=== PATIENT | male | born 1950 | race Caucasian/White ===

== ENCOUNTER 2020-02-02 23:02 | Inpatient (IN) | payer OTHER, MEDICARE, BC ==
[~2020-02-02] VITALS: Ht 180.3 cm; Wt 81.6 kg
--- NOTE | 2020-02-02 23:03 | NUR ---
BY EMS TO ROOM. MOVED SELF TO STRETCHER WITHOUT PROBLEM. STRONG SMELL OF ETOH.
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
[2020-02-02 23:42] LABS: HEMATOCRIT 29.5 % (39.0-50.0); HEMOGLOBIN 9.9 g/dl (14.0-18.0); IMMATURE GRANULOCYTES 0.2 % (0.0-5.0); MEAN CELL VOLUME 100.3 fL CALC (80.0-100.0); MEAN CORPUSCULAR HGB 33.7 pG CALC (26.0-32.0); MEAN CORPUSCULAR HGB CONC 33.6 g/dL CAL (32.0-36.0); NEUT# 2.86 thou/uL (1.82-7.42); RED BLOOD COUNT 2.94 mill/uL (4.70-6.10); RED CELL DISTRI WIDTH 18.2 % (11.5-15.5)
[2020-02-02 23:48] LABS: ALBUMIN 3.9 g/dL (3.2-5.0); ALKALINE PHOSPHATASE 179 u/l (38-126); ANION GAP 17 (6-22 (CALC)); BILIRUBIN, TOTAL 0.7 mg/dL (0.0-1.4); BUN 13 mg/dL (8-23); BUN/CREATININE RATIO 10 (12-20 (CALC)); CARBON DIOXIDE 20 mmol/l (22-30); CHLORIDE 101 mmol/l (95-108); CREATININE 1.3 mg/dL (0.7-1.3); ETHYL ALCOHOL 195 mg/dl (0-30); GFR 54 ML/MIN (>=60 (CALC)); GFR FOR AFR.AMER. > 60 ML/MIN (>=60 (CALC)); POTASSIUM 3.5 mmol/l (3.5-5.1); SGOT/AST 270 u/l (19-48); SODIUM 135 mmol/l (137-146)
--- NOTE | 2020-02-03 00:31 | NUR ---
PT SLEEPING. VSS. NAD.
--- NOTE | 2020-02-03 02:59 | NUR ---
PT SLEEPING. AROUSES EASILY. VOIDED 600 CC IN URINAL. URINE SAMPLE SENT.
--- NOTE | 2020-02-03 03:46 | NUR ---
PT RESTING. NAD. VSS.
--- NOTE | 2020-02-03 04:49 | NUR ---
PT RESTING. VSS. NAD.
--- NOTE | 2020-02-03 05:45 | NUR ---
DR TO BEDSIDE TO TALK WITH PT. PT STILL THINKS HE IS IN A [facility].
[2020-02-03 05:50] LABS: URINE BILIRUBIN - DIPSTICK NEGATIVE (NEGATIVE); URINE BLOOD DIPSTICK NEGATIVE (NEGATIVE); URINE COLOR YELLOW; URINE GLUCOSE - DIPSTICK NEGATIVE (NEGATIVE); URINE KETONE NEGATIVE (NEGATIVE); URINE LEUK ESTERASE NEGATIVE (NEGATIVE); URINE NITRITE - DIPSTICK NEGATIVE (Negative); URINE PH 5.5 (4.5-8.0); URINE PROTEIN - DIPSTICK NEGATIVE (NEG-TRACE); URINE UROBILINOGEN - DIPSTICK 0.2 E.U./dL (0.2)
--- NOTE | 2020-02-03 05:58 | NUR ---
PT VOIDED 800 CC IN URINAL. WHILE STRAINING TO VOID...HR INCREASED TO SVT 151. AFTER VOIDING HR DECREASED. DR TO BEDSIDE. EKG WAS ORDERED AND COMPLETED.
--- NOTE | 2020-02-03 06:50 | NUR ---
REORT TO RANDI
--- NOTE | 2020-02-03 07:00 | NUR ---
REPORT REVIECED FROM MAKI ARREOLA; PT REQUESTING SOMETHING FOR THE SHAKING OF HIS HANDS AT THIS TIME; PT ADVISED OF CONTINUED TESTING AND WAIT TIME; WILL CONTINUE TO MONITOR
--- NOTE | 2020-02-03 08:35 | NUR ---
Admission Note Report Given to: MAKI CAMACHO Transported by: Wheelchair X Stretcher Transported with: X Nurse Transporter X Patent IV O2 X Psychologist Clinical Location: X ICU [facility]
[2020-02-03 08:45] VITALS: BP 146/75
[2020-02-03 09:08] LABS: HEMATOCRIT 31.6 % (39.0-50.0); HEMOGLOBIN 10.5 g/dl (14.0-18.0); MEAN CORPUSCULAR HGB 33.5 pG CALC (26.0-32.0); MEAN CORPUSCULAR HGB CONC 33.2 g/dL CAL (32.0-36.0); RED BLOOD COUNT 3.13 mill/uL (4.70-6.10); RED CELL DISTRI WIDTH 18.2 % (11.5-15.5)
[2020-02-03 09:23] LABS: ANION GAP 14 (6-22 (CALC)); BUN 9 mg/dL (8-23); BUN/CREATININE RATIO 10 (12-20 (CALC)); CARBON DIOXIDE 23 mmol/l (22-30); CHLORIDE 105 mmol/l (95-108); CREATININE 0.9 mg/dL (0.7-1.3); GFR > 60 ML/MIN (>=60 (CALC)); GFR FOR AFR.AMER. > 60 ML/MIN (>=60 (CALC)); MAGNESIUM 1.7 mg/dL (1.6-2.3); POTASSIUM 3.8 mmol/l (3.5-5.1); SODIUM 138 mmol/l (137-146)
[2020-02-03 12:04] VITALS: BP 134/65
--- NOTE | 2020-02-03 12:25 | NUR ---
RESTING IN BED WITH EYES CLOSED; NO DISTRESS NOTED;WILL CONTINUE TO MONITOR.
--- NOTE | 2020-02-03 15:22 | NUR ---
PT C/O HAS LEFT SCAPULAR PAIN. PRN PAIN MEDICATION GIVEN. BEDSIDE URINAL EMPTIED. PT INSTRUCTED TO CALL FOR ANY FURTHER NEEDS. CALL ANDINO PLACED WITHIN REACH. REID CONTINUE TO OBSERVE.
[2020-02-03 16:01] VITALS: BP 147/75
--- NOTE | 2020-02-03 17:02 | NUR ---
PT IS RESTING QUIETLY IN BED WATCHING TV. IN NO APPARENT DISTRESS; IV INTACT AND SITE APPEARS HEALTHY. FRESH GOWN AND A PITCHER OF WATER PROVIDED. CALL ANDINO WITHIN REACH. WILL CONTINUE TO MONITOR.
[2020-02-03 17:55] VITALS: BP 148/90
--- NOTE | 2020-02-03 17:55 | NUR ---
PT ARRIVED FROM [facility] VIA WHEELCHAIR ASSISTED BY DOUG GAMBINO, PT AMBULATED WITH STEADY GAIT TO BATHROOM, ORIENTED PT TO ROOM AND CALL LIGHT, DISCUSSED POC, NOTED PT TREMORS, ASSESSMENT COMPLETED, CALL LIGHT IN REACH,CONTINUE TO MONITOR.
--- NOTE | 2020-02-03 18:00 | NUR ---
PT TRANSFERED TO [facility] FLOOR, ROOM 269. REPORT GIVES TO BENITO. PT TRANSPORTED IN IN STABLE CONDITION WITH ALL HIS BELONGS. PT ORIENTED TO NEW ROOM, INCLUDING CALL SYSTEM, LIGHTING AND TV REMOTE. PT VERBALIZED NO CONCERNS AND CALL ANDINO WAS PLACED WITHIN REACH.
--- NOTE | 2020-02-03 18:09 | NUR ---
PT RESTING IN BED C/O HEADACHE, CIWA 12, PT MEDICATED WITH ULTRAM AND LIBRIUM, CALL LIGHT IN REACH,CONTINUE TO MONITOR.
--- NOTE | 2020-02-03 18:31 | NUR ---
ED CALLED PT SUSTAINING IN THE 150's RT CALLED FOR EKG, PT VOICES NO NEEDS OR COMPLAINTS AT THIS TIME. CALL LIGHT IN REACH,CONTINUE TO MONITOR.
[2020-02-03 19:10] VITALS: BP 135/82
--- NOTE | 2020-02-03 20:32 | NUR ---
PT MEDICATED FOR PAIN 12/20 IN L.SHOULDER AND HEADACHE. TREMORS IMPROVIDED TO MILD W/HANDS HELD. DENIES N/V/D, DENIES AUDITORY OR VISUAL DISTURBANCES. ASSISTED PT TO RESTROOM AND BACK TO BED. HR ELEVATED TO 140 FROM 100 UPON AMBULATING PER ED UNEMPLOYMENT INSPECTOR.
--- NOTE | 2020-02-03 22:20 | NUR ---
PT CALLED TO REPORT HEADACHE AND NEEDING HIS TYLENOL. PT APPEARS AGITATED, REPORTS FEELING JITTERY. PT HANDS APPEARS FAIRLY STEADY VISUALLY. DISCUSSED MEDICATIONS WITH PT AND INFORMED HIM OF MEDICATION SCHEDULE AND INFORMED HIM OF WHEN HE LAST HAD PAIN MEDICATION. I OFFERED COMFORT MEASURES, COOL WASH CLOTHES, ETC./REFUSED ALL COMFORT MEASURES. DISCUSSED ATIVAN WITH PT FOR AGITATION AND HE AGREED THAT HE MAY NEED THAT. PT MEDICATED FOR AGITATION W/ATIVAN AND PROVIDED GINERALE. DENIES ANY OTHER NEEDS.
[2020-02-03 23:36] VITALS: BP 146/85
--- NOTE | 2020-02-04 00:55 | NUR ---
PT CALLED TO ASK FOR NURSE TO TELL HIM REINIER AND MEDICATE FOR PAIN. UPON ENTERING ROOM PT IS AWAKE WATCHING TV, NO S/O DISTRESS. PT ASSESSED FOR CIWA, NEURO'S INTACT, MILD TREMORS NOTED. DENIES AUDITORY OR VISUAL DISTURBANCES. PT IS TALKATIVE, BUT ASKING FOR PAIN MED FOR HIS L.SHOULDER, DENIES HEADACHE AT THIS TIME. ALSO ASKS FOR THE "THE SHOT YOU GAVE ME BEFORE," ATIVAN IV WAS GIVEN TWO HOURS PRIOR, PT STATES THAT IT "HELPED A LOT," AND IS ASKING FOR ANOTHER DOSE. PT EDUCATED ON THE MEDICATION SCHEDULE AND ITS USE, VERBALIZED UNDERSTANDING. PT DENIES ANY OTHER NEEDS AT THIS TIME. CALL LIGHT AT SIDE.
[2020-02-04 04:02] VITALS: BP 130/77
--- NOTE | 2020-02-04 05:29 | NUR ---
PT MEDICATED FOR PAIN REPORTED 6/10 IN LEFT SHOULDER AND FOR ANXIOUSNESS. PT REQUESTING ATIVAN SPECIFIC, STATED "IT HELPED." PT STATED "IT IS IN MY SHOULDER, IT'S HARD TO MOVE IN THE BED." WHEN PROVIDING PAIN PILL, PT LIFTED HIMSELF UP ONTO LEFT SHOULDER/ELBOW, NO VISUALIZED DISTRESS OR FLINCHING NOTED. PRIOR TO LEAVING ROOM, PT ASKED, "WHAT ABOUT THAT HEADACHE I HAD" I ADVISED PT THAT THIS MEDICATION IS FOR ALL PAIN, HE SAID, "WELL WHY AM I NOT GETTING TYLENOL?" I INFORMED PT THAT THIS MEDICATION GIVEN IS STRONGER THAN TYLENOL. PT DENIES VISUAL OR AUDITORY DISTURBANCES, BUT APPEARS DIFFICULTY FORMULATING WORDS CLEARLY AND SLIGHT CONFUSION.
[2020-02-04 05:43] LABS: HEMATOCRIT 28.6 % (39.0-50.0); HEMOGLOBIN 9.5 g/dl (14.0-18.0); IMMATURE GRANULOCYTES 0.4 % (0.0-5.0); MEAN CELL VOLUME 102.9 fL CALC (80.0-100.0); MEAN CORPUSCULAR HGB 34.2 pG CALC (26.0-32.0); MEAN CORPUSCULAR HGB CONC 33.2 g/dL CAL (32.0-36.0); NEUT# 3.04 thou/uL (1.82-7.42); RED BLOOD COUNT 2.78 mill/uL (4.70-6.10); RED CELL DISTRI WIDTH 18.2 % (11.5-15.5)
[2020-02-04 06:06] LABS: ANION GAP 9 (6-22 (CALC)); BUN 4 mg/dL (8-23); BUN/CREATININE RATIO 7 (12-20 (CALC)); CARBON DIOXIDE 26 mmol/l (22-30); CHLORIDE 105 mmol/l (95-108); CREATININE 0.7 mg/dL (0.7-1.3); GFR > 60 ML/MIN (>=60 (CALC)); GFR FOR AFR.AMER. > 60 ML/MIN (>=60 (CALC)); POTASSIUM 3.4 mmol/l (3.5-5.1); SODIUM 135 mmol/l (137-146)
--- NOTE | 2020-02-04 07:30 | NUR ---
REPORT RECEIVED FROM MAKI MACK. PT RESTING IN BED ON RIGHT SIDE WITH EYES CLOSD AND NO SIGNS OF DISTRESS; AWAKENS SPONTANEOUSLY. ALERT AND ORIENTED WITH FLAT AFFECT. C/O 6/10 LEFT SHOULDER PAIN. RESPIRATIONS EVEN AND UNLABORED ON ROOM AIR. MILD TREMORS AND SOME ANXIETY NOTED; DENIES ANY HALLUCINATIONS. LUNGS ARE CLEAR; ABDOMEN DISTENDED AND FIRM WITH UMBILICAL HERNIA. SCABS TO LEFT ELBOW AND FINGERS. PLAN OF CARE REVIEWED. PT ENCOURAGED TO VERBALIZE CONCERNS. STATES UNDERSTANDING. SAFETY MEASURES IN PLACE. CALL LIGHT WITHIN REACH.
[2020-02-04 07:37] VITALS: BP 127/82
--- NOTE | 2020-02-04 08:10 | NUR ---
MAGNETIC RESONANCE IMAGING COORDINATOR NOTIFIED NURSE OF HEART RATE IN THE 160'S; PT SITTING UP ON EDGE OF BED EATING BREAKFAST; ASYMPTOMATIC BESIDES HIS ALCOHOL WITHDRAWL SYMPTOMS.
--- NOTE | 2020-02-04 08:14 | NUR ---
AT BEDSIDE FOR EVAL AND DISCUSS POC.
--- NOTE | 2020-02-04 09:25 | NUR ---
LIBRIUM NOW SCHEDULED; GIVEN WITH LORTAB AND BANANA BAG.
--- NOTE | 2020-02-04 11:24 | NUR ---
RADIOLOGY AT BEDSIDE FOR PORTABLE SHOULDER XRAY.
[2020-02-04 15:15] VITALS: BP 136/86
--- NOTE | 2020-02-04 18:00 | NUR ---
ULTRAM GIVEN WITH SCHEDULED LIBRIUM. BANANA BAG COMPLETED AND NS NOW INFUSING AT 125 ML/HR; IV SITE APPEARS HEALTHY. NO OTHER REQUESTS OR CONCERNS AT THIS TIME. CALL LIGHT WITHIN REACH.
--- NOTE | 2020-02-04 18:10 | NUR ---
PT REQUESTED A BOTTLE OF MOUTH WASH; STATES HE ALREADY USED HIS FIRST BOTTLE PROVIDED AT ADMISSION. EMPTY MOUTH WASH BOTTLE NOTED NEXT TO USED TOOTH [employer]ODU[employer]. 2ND BOTTLE PROVIDED; WILL MONITOR FOR POSSIBLE DRINKING OF MOUTH WASH. NIGHT NURSE NOTIFIED.
[2020-02-04 18:55] VITALS: BP 138/80
--- NOTE | 2020-02-04 21:00 | NUR ---
PT ASSESSMENT COMPLETED AT THIS TIME. PT DENIES ANY NEEDS. SODA AND ICE PROVIDED PER REQUEST. CALL LIGHT AT SIDE AND PT ENCOURAGED TO CALL NEEDS ARISE. PT ASKING ABOUT MED SCHEDULE. URINAL EMPTIED OF 450CC OF CLEAR DARK YELLOW.
--- NOTE | 2020-02-05 00:06 | NUR ---
RACQUEL RN ON UNIT TASKING IS IN W/PT AT THIS TIME ADMINISTERING MEDICATIONS ORDERS PROVIDE. WILL FOLLOW-UP WITH WA ASSESSMENT.
--- NOTE | 2020-02-05 00:20 | NUR ---
CIWA ASSESSED IN PT AT THIS TIME @9 ON CIWA SCALE.
--- NOTE | 2020-02-05 00:40 | NUR ---
PT AMBULATED DOWN HALLWAY TO NURSES STATION AND QUESTIONED WHO HAD BEEN IN HIS ROOM AND WHY. HE REPORTED THAT HE WAS SLEEPING SOUNDLY AND HE HEARD HIS DOOR OPEN AND SOMEONE SAID, "YOU OKAY?" AND HE WANTED TO KNOW WHO AND WHY. I ANSWERED THE PTS QUESTIONS AND REASSURED HIM THAT WE DO HOURLY CHECKS AND THAT WE HAD ALSO JUST BEEN IN SEARCH FOR ONE OF OUR NURSES ON THE FLOOR DOING ROOM CHECKS. HE VERBALIZED UNDERSTANDING, BUT ASKED THE SAME QUESTION TWO MORE TIMES ON THE WAY BACK TO HIS ROOM. IV FLUIDS REPLENISHED AT THIS TIME AND PT LEFT IN BED W/LIGHTS OFF AND CALL LIGHT AT SIDE.
[2020-02-05 03:51] VITALS: BP 134/80
--- NOTE | 2020-02-05 04:04 | NUR ---
URINAL EMPTIED OF 500CC CLEAR YELLOW URINE. PT MEDICATED FOR PAIN 6/10 ON PAIN SCALE IN LEFT SHOULDER. PT IS LAYING PROPPED UP ON LEFT SHOULDER AT TIME OF MEDICATION ADMINISTERED, NO S/O DISTRESS. TREMORS W/ARMS EXTENDED. DENIES AUDITORY AND VISUAL DISTURBANCES. DISCUSSED CHANGING EMS IV SITE, PT STATED, "IT IS GOOD, I DON'T NEED IT CHANGED."
[2020-02-05 04:59] LABS: HEMATOCRIT 27.8 % (39.0-50.0); HEMOGLOBIN 9.1 g/dl (14.0-18.0); MEAN CELL VOLUME 104.5 fL CALC (80.0-100.0); MEAN CORPUSCULAR HGB 34.2 pG CALC (26.0-32.0); MEAN CORPUSCULAR HGB CONC 32.7 g/dL CAL (32.0-36.0); RED BLOOD COUNT 2.66 mill/uL (4.70-6.10); RED CELL DISTRI WIDTH 18.4 % (11.5-15.5)
[2020-02-05 05:18] LABS: ALKALINE PHOSPHATASE 143 u/l (38-126); ANION GAP 10 (6-22 (CALC)); BILIRUBIN, TOTAL 0.6 mg/dL (0.0-1.4); BUN 3 mg/dL (8-23); BUN/CREATININE RATIO 4 (12-20 (CALC)); CARBON DIOXIDE 23 mmol/l (22-30); CHLORIDE 106 mmol/l (95-108); CREATININE 0.7 mg/dL (0.7-1.3); GFR > 60 ML/MIN (>=60 (CALC)); GFR FOR AFR.AMER. > 60 ML/MIN (>=60 (CALC)); POTASSIUM 3.6 mmol/l (3.5-5.1); SGOT/AST 88 u/l (19-48); SODIUM 135 mmol/l (137-146); TOTAL PROTEIN 5.7 g/dL (6.3-8.2)
[2020-02-05 07:16] VITALS: BP 141/93
--- NOTE | 2020-02-05 07:20 | NUR ---
REPORT RECEIVED FROM MAKI MACK. PT SITTING UP IN CHAIR; ALERT AND ORIENTED. USED CALL LIGHT TO REQUEST MEDICATION FOR ANXIETY; ATIVAN GIVEN AT THIS TIME. PT C/O MILD PAIN TO LEFT SHOULDER; RESPIRATIONS EVEN AND UNLABORED ON ROOM AIR. CIWA CURRENTLY AN 8; PT HAS APPARENT TREMORS WHILE SITTING; C/O ANXIETY AND MILD AGITATION/RESTLESSNESS; DENIES ANY HALLUCINATIONS. PLAN OF CARE REVIEWED. PT ENCOURAGED TO VERBALIZE CONCERNS. STATES UNDERSTANDING. SAFETY MEASURES IN PLACE. CALL LIGHT WITHIN REACH.
--- NOTE | 2020-02-05 08:22 | NUR ---
DR. RIVERA AT BEDSIDE FOR EVAL. PT REQUESTS TO GO HOME. MD DISCUSSED DISCHARGE PLANS AND ALCOHOISM; PT TEARFUL. RISKS OF ABUSING ALCOHOL REVIEWED; PT STATES UNDERSTANDING.
--- NOTE | 2020-02-05 09:24 | NUR ---
LORTAB GIVEN FOR 5/10 LEFT SHOULDER PAIN. PT REQUESTING ATIVAN; REMINDED THAT HE RECEIVED ATIVAN 2 HOURS AGO. PT STATES THAT HE FORGOT. RESTING WITH NO SIGNS OF ANXIETY; TREMORS ARE IMPROVED SINCE BEING MEDICATED. NO OTHER REQUESTS OR CONCERNS AT THIS TIME.
[2020-02-05] MEDS ORDERED: ZESTRIL10 M1 PO (09:46)
[2020-02-05] MEDS ORDERED: ZOCOR20 M1 PO (09:47)
[2020-02-05] MEDS ORDERED: CHLORTHALID25 MG PO (09:53)
[2020-02-05] MEDS ORDERED: LEVOTHYROXIN50 MC1 PO (09:54)
[2020-02-05] MEDS ORDERED: ASPIRIN ADULT L81 MG PO (09:54)
[2020-02-05] MEDS ORDERED: CO Q-10300 MG PO (09:54)
[2020-02-05] MEDS ORDERED: VITA D-1000 PO (09:55)
[2020-02-05] MEDS ORDERED: VITA-C PO (09:55)
[2020-02-05] MEDS ORDERED: VITAMIN B COMPL1 TAB PO (09:56)
[2020-02-05] MEDS ORDERED: CALCIUM/MAG PO (09:57)
[2020-02-05] MEDS ORDERED: FISH OIL1200 M1 PO (09:58)
[2020-02-05] MEDS ORDERED: ALPH-E400 UNIT PO (09:58)
[2020-02-05] MEDS ORDERED: VITAMIN C1000 MG PO (10:00)
[2020-02-05] MEDS ORDERED: VITAMIN D32000 UNIT PO (10:00)
--- NOTE | 2020-02-05 10:09 | NUR ---
SPOKE WITH REGARDING MEDICATIONS; MED REC COMPLETED. PT IS DRESSED AND ANXIOUS TO BE DISCHARGED.
[2020-02-05] MEDS ORDERED: LIBRIUM25 MG PO (10:21)
[2020-02-05 10:30] VITALS: BP 127/82
--- NOTE | 2020-02-05 10:30 | NUR ---
IV site discontinued, cath intact. No edema , no redness, voices no discomfort.
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
--- NOTE | 2020-02-05 10:45 | NUR ---
CASE MANGEMENT AT BEDSIDE TO PROVIDE RESOURCES ON DRUG REHABS AND AA.
== END 2020-02-05 10:41 | disposition home or self-care (01) | DRG 897 ==
LOC: ED 23:02 → ED-I 02-03 06:50 → ED 02-03 07:05 → MS2 02-03 07:06 → ICU 02-03 07:06 → MS2 02-03 17:55
PROVIDERS: Emergency Medicine; Nurse Practitioner; Nurse Practitioner Family; ADMIT Internal Medicine; ATTEND Internal Medicine
DX: F10.239 Alcohol dependence with withdrawal, unspecified (principal); I47.1 Supraventricular tachycardia; F10.229 Alcohol dependence with intoxication, unspecified; G31.2 Degeneration of nervous system due to alcohol; I10 Essential (primary) hypertension; K76.0 Fatty (change of) liver, not elsewhere classified; M25.512 Pain in left shoulder; W19.XXXA Unspecified fall, initial encounter; Y90.6 Blood alcohol level of 120-199 mg/100 ml; Z85.46 Personal history of malignant neoplasm of prostate; Z20.828 Contact with and (suspected) exposure to other viral communicable diseases
CPT/HCPCS: J2060; J3475; Q9967